=== PATIENT | female | born 1995 | race Caucasian/White ===

== ENCOUNTER 2018-06-11 09:33 | Emergency (ER) | payer OTHER ==
--- NOTE | 2018-06-11 10:12 | EDPHY ---
General Time Seen by Provider: 06/11/18 09:46 Narrative: CLINICAL IMPRESSION: Resolved dizziness, left arm paresthesias, headache ASSESSMENT/PLAN: 23 yo otherwise healthy [employer] student presents with vague, resolved sx's of BOLANOS, dizziness, disorientation, blurry vision, and left arm paresthesias and weakness beginning around midnight and awakening her from sleep. ON arrival she has resolved symptoms with her only complaint being a mild 2/10 BOLANOS that she declined analgesics. SHe has a non-focal neuro exam, no midline neck pain, negative high sensitivity neuro exam of C-L spine, no arm swelling, and no c/o CP/SOB. EKG shows NSR, no acute ST/T wave change. Labs reassured, no electrolyte imbalance or metabolic disturbance. Given description of symptoms a CT/CTA head/neck were ordered and read by radiology as negative for acute abnormality. Patient was feeling well on reassessement, ambulated to restroom without difficulty and feels comfortable with discharge home and PCP f/u as outpatient. Case reviewed with Dr. Kwan. Warning signs for return to ER sooner outlined in d/c. DIFFERENTIAL DX: [Differential diagnosis includes but not limited to left arm DVT, acute nerve compression, brachial plexus injury, vertebral artery dissection, ACS, cardiac arrhythmia, metabolic disturbance, electrolyte imbalance ] [ED PROCEDURES:] [See lab and/or imaging results below ] ED COURSE: 10:00 a.m.: Patient seen assessed by myself. No physical complaints at this time. Vital signs stable. Plan for EKG, labs. Will discuss with Dr. Kwan. After discussion with Dr. Kwan, we feel the patient would benefit from CT a head and neck. IV fluids ordered. 10:45 a.m.: EKG shows normal sinus rhythm, no acute ST or T-wave changes, Brugada, WPW, or QTC prolongation. Reviewed with Dr. Kwan. During patient's ER stay, access to [employer] and internet was lost. Labs returned with no abnormalities and radiology read CT/CTA as normal with no acute findings. Relayed this to patient who is feeling well, ambulated to restroom and has no complaints. CHIEF COMPLAINT: Left arm numbness, weakness, dizziness, disorientation HPI: This is a very pleasant 23-year-old [employer] student who presents to the emergency department with multiple vague complaints. Patient states she went to bed last night at 10:00 p.m. Because she was "very tired". She reports she was awoke and at midnight feeling dizzy which she describes as a spinning sensation. She also reports a 9 and 0.5/10 headache and disorientation with blurry vision out of both eyes. She reported her left arm was "completely numb and weak and I had to lift in order to move it". Patient stumbled to the restroom required her roommates help to get to the restroom. She drank some water and states symptoms started to resolve. She went back to bed at around 1: 30 a.m. This morning and awoke at 7:00 a.m.. Upon awakening at 7:00 a.m., she reports she still had a headache although much improved at 3/10. She did not take anything for headache. She reports the numbness in her arm resolved and no longer feels weak. She denies coinciding chest pain or shortness of breath. She reports she does get headaches but states this headache felt no reports of any head or neck trauma. She did not ingest alcohol or illicit drugs last night. No arm swelling. No history of DVT or PE. There is a family history of diabetes. She reports she has felt more tired and thirsty recently. No recent air or car travel or surgery. She does take estrogen based control. She otherwise takes no prescription medications and is reportedly healthy PAST MEDICAL HISTORY: None reported [See nurse/triage notes for additional history if applicable ] Pertinent Past Surgical History: None reported Family History: Family history of diabetes Social History: Student at [employer], nonsmoker REVIEW OF SYSTEMS: All other systems negative Constitutional: [No fever, no chills, appetite change.] Eyes: [No discharge, vision change] ENT: [No sore throat, congestion, ear pain.] Cardiovascular: [No chest pain, no palpitations.] Respiratory: [No cough, no shortness of breath.] Gastrointestinal: [No abdominal pain, no vomiting, diarrhea.] Genitourinary: [No hematuria, dysuria, flank pain, pelvic pain] Musculoskeletal: [No back pain, joint swelling, joint pain, myalgias.] Skin: [No rashes, color change.] Neurological: [Positive for headache, dizziness, denies weakness.] PHYSICAL EXAM: General Appearance: [Alert, oriented, appropriate, cooperative, NAD, well hydrated, non-toxic appearing, VSS, no hypoxia.] HEENT: [TMs are clear bilaterally no perforation or FB, no injection, no evidence of serous or mucopurulent otitis. Oropharynx clear is no erythema or exudates, no tonsillar hypertrophy or asymmetry. Dentition without abnormality. ] Eyes: [PERRLA, no acute vision change, nystagmus, swelling, discharge, pain or photosensitivity. No papilledema Conjunctiva pink, no pallor or injection] Neck: [Supple, nontender, no lymphadenopathy, no midline pain, FROM, no meningismus. No carotid bruits] Respiratory: [There are no retractions, lungs are clear to auscultation.] Cardiac: [Regular rate and rhythm, no murmurs or gallops.] Gastrointestinal: [Abdomen is soft, nontender, bowel sounds normal, no masses/ hernia, no rigidity, guarding or focal peritoneal findings.] Neurological: [ Alert and oriented x 3, CN 2-12 grossly intact, normal gait no ataxia, DTR's intact, normal sensation and strength. Normal high sensitivity neuro exam of C-L spine.] Skin: [Warm, dry, no rashes, no nodules on palpation.] Musculoskeletal: [Extremities are symmetrical, full range of motion, no tenderness, deformity, swelling, or erythema. No swelling, erythema or warmth of the left arm.] Psychiatric: [Patient is oriented X 3, there is no agitation.] MEDICAL DECISION MAKING: Patient was seen independently. Secondary supervising physician at time of evaluation was [ Dr. Kwan]. Diagnosis: Resolved Dizziness, headache, left arm paresthesias. New, requires workup Summary: [ See Assessment and Plan for summary of ED visit ] Clinical lab tests: [ ordered / reviewed]. Independent visualization of images, tracing, or specimens: [ Yes Discussed patient with another provider: Dr Kwan, radiology Patient Progress: Stable for d/c. - Diagnostics Imaging Results: Imaging Impressions Head CT 06/11/18 10:15 Impression: 1. No significant intracranial abnormality seen. If symptoms worsen, additional imaging may be necessary. Head CTA 06/11/18 10:15 Impression: 1. Normal CT angiogram of the neck. 2. Normal CT angiogram of the [place], as detailed above. Note: All calculations were performed using NASCET criteria. Findings discussed with Khai Davis PAC at 13:16 hour, 06/11/2018. Neck CTA 06/11/18 10:15 Impression: 1. Normal CT angiogram of the neck. 2. Normal CT angiogram of the [place], as detailed above. Note: All calculations were performed using NASCET criteria. Findings discussed with Khai Davis PAC at 13:16 hour, 06/11/2018. - History Smoking Status: Never smoked - Objective Vital Signs: Initial Vital Signs Temperature (C) 37.1 C 06/11/18 09:38 Heart Rate 80 06/11/18 09:38 Respiratory Rate 18 06/11/18 09:38 Blood Pressure 130/90 H 06/11/18 09:38 O2 Sat (%) 96 06/11/18 09:38 O2 Delivery Mode Room Air Allergies/Adverse Reactions: No Known Allergies Allergy (Unverified 06/11/18 09:37) Home Medications: Medication Instructions Recorded Bcp 06/11/18 Laboratory Results: Laboratory Results 06/11/18 10:34 06/11/18 10:34 06/11/18 06/11/18 10:34 10:34 WBC 10.31 10^3/uL H 10^3/uL (3.80-9.50) RBC 4.48 10^6/uL 10^6/uL (4.18-5.33) Hgb 12.4 g/dL L g/dL (12.6-16.3) Hct 37.3 % L % (38.0-47.0) MCV 83.3 fL fL (81.5-99.8) MCH 27.7 pg L pg (27.9-34.1) MCHC 33.2 g/dL g/dL (32.4-36.7) RDW 13.1 % % (11.5-15.2) Plt Count 360 10^3/uL 10^3/uL (150-400) MPV 9.5 fL fL (8.7-11.7) Neut % (Auto) 62.8 % % (39.3-74.2) Lymph % (Auto) 28.9 % % (15.0-45.0) [place] % (Auto) 5.2 % % (4.5-13.0) Eos % (Auto) 2.2 % % (0.6-7.6) Baso % (Auto) 0.7 % % (0.3-1.7) Nucleat RBC Rel Count 0.0 % % (0.0-0.2) Absolute Neuts (auto) 6.47 10^3/uL 10^3/uL (1.70-6.50) Absolute Lymphs (auto) 2.98 10^3/uL 10^3/uL (1.00-3.00) Absolute Monos (auto) 0.54 10^3/uL 10^3/uL (0.30-0.80) Absolute Eos (auto) 0.23 10^3/uL 10^3/uL (0.03-0.40) Absolute Basos (auto) 0.07 10^3/uL 10^3/uL (0.02-0.10) Absolute Nucleated RBC 0.00 10^3/uL 10^3/uL (0-0.01) Immature Gran % 0.2 % % (0.0-1.1) Immature Gran # 0.02 10^3/uL 10^3/uL (0.00-0.10) Sodium 137 mEq/L mEq/L (135-145) Potassium 4.5 mEq/L mEq/L (3.5-5.2) Chloride 105 mEq/L mEq/L (97-110) Carbon Dioxide 23 mEq/l mEq/l (22-31) Anion Gap 9 mEq/L mEq/L (6-14) BUN 11 mg/dL mg/dL (7-23) Creatinine 0.6 mg/dL mg/dL (0.6-1.0) Estimated GFR > 60 Glucose 80 mg/dL mg/dL (70-100) Calcium 9.1 mg/dL mg/dL (8.5-10.4) Medications Given: Discontinued Medications Sodium Chloride (Ns) 1,000 mls @ 0 mls/hr IV EDNOW ONE; Wide Open PRN Reason: Protocol Stop: 06/11/18 10:16 Last Admin: 06/11/18 10:30 Dose: 1,000 mls Departure - Departure Disposition: Home, Routine, Self-Care Clinical Impression: Paresthesia Condition: Good Referrals: NONE *PRIMARY CARE P,. [Primary Care Provider] - As per Instructions
[2018-06-11] MEDS ORDERED: NS 1,000 ML IV ONE (10:15)
[2018-06-11] MEDS ORDERED: IOPAMIDOL (ISOVUE 370) 100 ML BTL IV ONE (10:35)
[2018-06-11 10:50] LABS: PLATELET COUNT 360 10^3/uL (150-400)
[2018-06-11 17:13] VITALS: BP 113/62
--- NOTE | 2018-06-12 08:49 | CPEKG ---
Test Reason : OPEN Blood Pressure : / mmHG Vent. Rate : 070 BPM Atrial Rate : 071 BPM P-R Int : 117 ms QRS Dur : 090 ms QT Int : 395 ms P-R-T Axes : 059 079 032 degrees QTc Int : 427 ms Sinus rhythm Confirmed by Anatoly Kwan ([id number]) on 06/12/2018 8:49:32 AM Referred By: Anatoly Kwan Confirmed By:Anatoly Kwan
== END 2018-06-11 14:19 | disposition home or self-care (01) ==
DX: R20.2 Paresthesia of skin (principal); R51 Headache; E86.9 Volume depletion, unspecified
CPT/HCPCS: Q9967